=== PATIENT | male | born 1965 | race African-American/Black ===

== ENCOUNTER 2020-10-05 04:37 | Inpatient (IN) | payer OTHER ==
[~2020-10-05 04:37] MED LIST: LEVAQUIN500 MG PO
[2020-10-05 05:30] LABS: BASOPHIL 0.2 % (0-2); EOSINOPHIL 0.1 % (0-5); HCT 36.9 % (42.0-52.0); LYMPHOCYTE 5.1 % (15-48); MCH 29.3 pg (25.0-31.0); MCHC 29.8 g/dL (32.0-36.0); MCV 98.4 fL (78.0-100.0); MONOCYTE 4.4 % (0-12); MPV 9.9 fL (6.0-9.5); NEUTROPHIL 89.1 % (41-80); NRBC 0; PLT 268 K/uL (150-400); RBC 3.75 M/uL (4.70-6.00); RDW 15.7 % (11.5-14.0)
[2020-10-05 06:20] LABS: BILIRUBIN NEGATIVE (NEGATIVE); BLOOD NEGATIVE Ery/uL (NEGATIVE); CLARITY CLEAR (CLEAR); COLOR YELLOW (YELLOW); GLUCOSE (U) NORMAL (NORMAL); LEUKOCYTES NEGATIVE Leu/uL (NEGATIVE); NITRITE NEGATIVE (NEGATIVE); PROTEIN TRACE (LOW) mg/dL (NEGATIVE); SPECIFIC GRAVITY >=1.030 (1.001-1.030); UROBILINOGEN 0.2 mg/dL (0.2-1.0); pH 5.5 (5.0-9.0)
[2020-10-05 06:28] LABS: ALBUMIN 2.9 g/dL (3.4-5.0); BILIRUBIN - TOTAL 0.3 mg/dL (0.2-1.0); BUN/CREAT RATIO (CALC) 16.2 RATIO; CREATININE 1.17 mg/dL (0.67-1.17); POTASSIUM 4.5 mmol/L (3.5-5.1); TOTAL PROTEIN 7.9 g/dL (6.4-8.2)
[2020-10-05 06:31] LABS: FLU B NEGATIVE B (NEGATIVE B)
[2020-10-05 06:34] LABS: URINARY RBC RARE
[2020-10-05 06:35] LABS: ECSTASY (MDMA) NEGATIVE (NEGATIVE); MARIJUANA (THC) NEGATIVE (NEGATIVE); METHADONE NEGATIVE (NEGATIVE); OPIATES NEGATIVE (NEGATIVE)
[2020-10-05 06:36] LABS: AMPHETAMINES POSITIVE (NEGATIVE); BARBITURATES NEGATIVE (NEGATIVE); OXYCODONE NEGATIVE (NEGATIVE)
[2020-10-05] MEDS ORDERED: PROAIR DIGIHAL90 MCG INH (12:46)
[2020-10-05] MEDS ORDERED: LOVENOX80 MG/0.8 SC (12:47)
[2020-10-05] MEDS ORDERED: NORVASC 5MG TABL5 MG PO (12:49)
[2020-10-05] MEDS ORDERED: SINGULAIR10 MG PO (12:49)
[2020-10-05] MEDS ORDERED: FOLIC ACID1 MG PO (12:49)
[2020-10-05] MEDS ORDERED: ZITHROMAX500 MG PO (12:50)
[2020-10-05] MEDS ORDERED: MAG-OXIDE 400M400 MG PO (12:50)
[2020-10-05] MEDS ORDERED: VENTOLIN (2.5 MG/3 M INH (12:54)
[2020-10-05] MEDS ORDERED: SPIRIVA 18MCG18 MCG INH (12:54)
[2020-10-06 05:40] LABS: BASOPHIL 0 % (0-2); EOSINOPHIL 0 % (0-5); HCT 28.9 % (42.0-52.0); LYMPHOCYTE 2.5 % (15-48); MCH 29.5 pg (25.0-31.0); MCHC 30.4 g/dL (32.0-36.0); MONOCYTE 2.4 % (0-12); MPV 10.1 fL (6.0-9.5); NEUTROPHIL 94.7 % (41-80); NRBC 0; PLT 195 K/uL (150-400); RBC 2.98 M/uL (4.70-6.00); RDW 15.5 % (11.5-14.0); WBC 6.7 K/uL (4.0-10.5)
[2020-10-06 05:47] LABS: HGB 8.8 g/dl (13.2-18.0)
[2020-10-06 06:05] LABS: BILIRUBIN - TOTAL 0.2 mg/dL (0.2-1.0); BUN/CREAT RATIO (CALC) 25.9 RATIO; CREATININE 1.12 mg/dL (0.67-1.17); GLOBULIN (CALCULATION) 3.9 g/dL; MAGNESIUM 1.7 mg/dL (1.8-2.4); POTASSIUM 4.9 mmol/L (3.5-5.1); TOTAL PROTEIN 5.9 g/dL (6.4-8.2)
--- NOTE | 2020-10-06 16:54 | NUR ---
PT LIVES WITH PARENT; PLEASE ADVISE OF DISCHARGE NEEDS
[2020-10-07 04:58] LABS: BASOPHIL 0.1 % (0-2); EOSINOPHIL 0 % (0-5); HCT 28.5 % (42.0-52.0); HGB 8.7 g/dl (13.2-18.0); LYMPHOCYTE 1.2 % (15-48); MCH 29.8 pg (25.0-31.0); MCHC 30.5 g/dL (32.0-36.0); MCV 97.6 fL (78.0-100.0); MONOCYTE 2.1 % (0-12); NRBC 0; PLT 176 K/uL (150-400); RBC 2.92 M/uL (4.70-6.00); RETICULOCYTE COUNT 1.3 % (1.0-2.0)
[2020-10-07 05:21] LABS: WBC 7.3 K/uL (4.0-10.5)
[2020-10-07 05:54] LABS: ALBUMIN 2.1 g/dL (3.4-5.0); BILIRUBIN - TOTAL 0.2 mg/dL (0.2-1.0); BUN/CREAT RATIO (CALC) 33.3 RATIO; CREATININE 0.93 mg/dL (0.67-1.17); GLOBULIN (CALCULATION) 3.8 g/dL; MAGNESIUM 2.4 mg/dL (1.8-2.4); POTASSIUM 4.4 mmol/L (3.5-5.1); TOTAL PROTEIN 5.9 g/dL (6.4-8.2)
[2020-10-07 06:12] LABS: IRON % SATURATION 34.2 %SAT (20-50)
--- NOTE | 2020-10-07 08:00 | NUR ---
OKAY TO USE LEFT CHEST PORT PER
[2020-10-08 03:13] LABS: BASOPHIL 0 % (0-2); EOSINOPHIL 0 % (0-5); HCT 27.4 % (42.0-52.0); HGB 8.1 g/dl (13.2-18.0); LYMPHOCYTE 1.1 % (15-48); MCHC 29.6 g/dL (32.0-36.0); MCV 101.5 fL (78.0-100.0); MONOCYTE 2.9 % (0-12); MPV 10.2 fL (6.0-9.5); NRBC 0; PLT 174 K/uL (150-400); RDW 16.3 % (11.5-14.0)
[2020-10-08 03:30] LABS: ALBUMIN 1.9 g/dL (3.4-5.0); ALKALINE PHOSHATASE 44 U/L (46-116); ALT 16 U/L (16-63); AST <5 U/L (15-37); BILIRUBIN - TOTAL 0.2 mg/dL (0.2-1.0); BUN 30 mg/dL (7-18); BUN/CREAT RATIO (CALC) 36.1 RATIO; CHLORIDE 110 mmol/L (98-107); CO2 (BICARBONATE) 26 mmol/L (21-32); CREATININE 0.83 mg/dL (0.67-1.17); GLOBULIN (CALCULATION) 3.7 g/dL; GLUCOSE 166 mg/dL (74-106); MAGNESIUM 2.1 mg/dL (1.8-2.4); PHOSPHORUS 2.2 mg/dL (2.6-4.7); POTASSIUM 4.5 mmol/L (3.5-5.1); TOTAL PROTEIN 5.6 g/dL (6.4-8.2)
[2020-10-09 05:08] LABS: BASOPHIL 0.1 % (0-2); EOSINOPHIL 0 % (0-5); HCT 29.4 % (42.0-52.0); HGB 8.6 g/dl (13.2-18.0); LYMPHOCYTE 1.2 % (15-48); MCH 29.8 pg (25.0-31.0); MCHC 29.3 g/dL (32.0-36.0); MCV 101.7 fL (78.0-100.0); MONOCYTE 3.1 % (0-12); MPV 10.5 fL (6.0-9.5); NRBC 0; PLT 186 K/uL (150-400); RBC 2.89 M/uL (4.70-6.00); RDW 16.3 % (11.5-14.0); WBC 8.2 K/uL (4.0-10.5)
[2020-10-09 05:59] LABS: NEUTROPHIL 94.7 % (41-80)
[2020-10-09 06:34] LABS: BILIRUBIN - TOTAL 0.1 mg/dL (0.2-1.0); BUN/CREAT RATIO (CALC) 38.8 RATIO; CREATININE 0.8 mg/dL (0.67-1.17); GLOBULIN (CALCULATION) 3.7 g/dL; MAGNESIUM 1.7 mg/dL (1.8-2.4); PHOSPHORUS 2.9 mg/dL (2.6-4.7); POTASSIUM 4.7 mmol/L (3.5-5.1); TOTAL PROTEIN 5.7 g/dL (6.4-8.2)
--- NOTE | 2020-10-09 19:33 | NUR ---
CPAP TRIAL ATTEMPTED THIS MORNING. DRIPS TITRATED TO fENTANYL TO 150 MCGS, VERSED OFF AND PROPOFOL TO 25 MCGS. ALL DRIP RETURNED TO FORMER RATES AFTER TRIAL
[2020-10-10 04:46] LABS: BASOPHIL 0 % (0-2); EOSINOPHIL 0 % (0-5); HCT 29.2 % (42.0-52.0); HGB 8.9 g/dl (13.2-18.0); LYMPHOCYTE 1.4 % (15-48); MCH 30.4 pg (25.0-31.0); MCHC 30.5 g/dL (32.0-36.0); MCV 99.7 fL (78.0-100.0); MONOCYTE 2.9 % (0-12); MPV 10.4 fL (6.0-9.5); NEUTROPHIL 94.9 % (41-80); NRBC 0; PLT 195 K/uL (150-400); RBC 2.93 M/uL (4.70-6.00); RDW 16.5 % (11.5-14.0)
[2020-10-10 06:18] LABS: BILIRUBIN - TOTAL 0.2 mg/dL (0.2-1.0); BUN/CREAT RATIO (CALC) 38.1 RATIO; CREATININE 0.84 mg/dL (0.67-1.17); GLOBULIN (CALCULATION) 3.3 g/dL; PHOSPHORUS 3.6 mg/dL (2.6-4.7); POTASSIUM 4.4 mmol/L (3.5-5.1); TOTAL PROTEIN 5.3 g/dL (6.4-8.2)
[2020-10-11 04:17] LABS: BASOPHIL 0.1 % (0-2); EOSINOPHIL 0 % (0-5); HCT 29.1 % (42.0-52.0); HGB 8.6 g/dl (13.2-18.0); MCH 29.8 pg (25.0-31.0); MCHC 29.6 g/dL (32.0-36.0); MCV 100.7 fL (78.0-100.0); MONOCYTE 2.3 % (0-12); MPV 10.6 fL (6.0-9.5); NRBC 0; PLT 197 K/uL (150-400); RBC 2.89 M/uL (4.70-6.00); RDW 16.6 % (11.5-14.0); WBC 8.6 K/uL (4.0-10.5)
[2020-10-11 04:32] LABS: BUN/CREAT RATIO (CALC) 46.2 RATIO; CREATININE 0.78 mg/dL (0.67-1.17); POTASSIUM 4.7 mmol/L (3.5-5.1)
--- NOTE | 2020-10-11 09:15 | NUR ---
0830 RESP AT BEDSIDE FOR CPAP TRIAL 0835- O2 SAT DOWN TO 82% WHILE ON CPAP SETTINGS, MD NOTIFIED, SETTING CHANGED BACK TO PREVIOUS VENT SETTINGS, O2 IMPROVING, WILL CONTINUE TO DECREASE SEDATION AND TRY CPAP TRIAL AGAIN LATER
--- NOTE | 2020-10-11 13:03 | NUR ---
1025-RESTARTED CPAP TRIAL, PT ABLE TO FOLLOW SIMPLE COMMANDS 1230- PT HAS BEEN TOLERATING CPAP TRIAL WELL, MD DID TURN UP FIO2 TO 65 FOR SLIGHT DROP IN O2 LEVEL, O2 QUICKLY IMPROVED, WILL CONTINUE TO MONITOR
--- NOTE | 2020-10-11 21:07 | NUR ---
PATIENT IS AWAKE AND RESTLESS ON VENT. SETTING CHANGES MADE FOR BETTER PATIENT COMFORT WITH VENTILATOR PS DECREASED TO 8 AND FLOW DECREASED TO 60, BETTER SYNCHRONY WITH VENT SAT 100%, FIO2 DECREASED 30%
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
--- NOTE | 2020-10-12 02:08 | NUR ---
PATIENT CONTINUES TO REST COMFORTABLY ON CPAP PIP 17, SPON EXVT 706, RR 10-12 ON 30% +5 SAT 99% PATIENT HAS NOT ALARMED SINCE SWITCHED TO CPAP
[2020-10-12 03:45] LABS: BASOPHIL 0.1 % (0-2); EOSINOPHIL 0 % (0-5); HCT 35.8 % (42.0-52.0); HGB 10.8 g/dl (13.2-18.0); LYMPHOCYTE 1.2 % (15-48); MCH 30.1 pg (25.0-31.0); MCHC 30.2 g/dL (32.0-36.0); MCV 99.7 fL (78.0-100.0); MONOCYTE 3.6 % (0-12); MPV 9.8 fL (6.0-9.5); NRBC 0; PLT 231 K/uL (150-400); RBC 3.59 M/uL (4.70-6.00); RDW 16.3 % (11.5-14.0); WBC 12.6 K/uL (4.0-10.5)
[2020-10-12 04:05] LABS: ALBUMIN 2.3 g/dL (3.4-5.0); BILIRUBIN - TOTAL 0.2 mg/dL (0.2-1.0); CREATININE 0.76 mg/dL (0.67-1.17); GLOBULIN (CALCULATION) 3.9 g/dL; MAGNESIUM 1.9 mg/dL (1.8-2.4); PHOSPHORUS 4.4 mg/dL (2.6-4.7); POTASSIUM 5.4 mmol/L (3.5-5.1); TOTAL PROTEIN 6.2 g/dL (6.4-8.2)
--- NOTE | 2020-10-12 05:09 | NUR ---
PATIENT HAD APNEIC EPISODE THIS AM, PATIENT NOT ALERT PREVIOSULY THROUGH THE NIGHT. AM ABG DOCUMENTED ON PS10 COMPENSATED RESP FAILURE. PATIENT NOW BACK ON SIMV 550, RR 20, PS 8, +5, 30%. PATIENT HAD INCREASED PIP PRESSURES TO 65, NOW AFTER BEING ON SETTINGS ABOUT 5 MINUTES PIP AROUND 48-50. PATIENT SUCTIONED, PATIENT HAD COUGHED UP THIN SLIGHT PINKISH TINT SECRETIONS. PATIENT SUCTIONED THROUGH ET AGAIN WITH THIN GRAVES/PINK SECRETIONS. PATIENT NOT RESTLESS HE WAS PRIOR THIS EVENING. RN TO START WEANING SEDATION AROUND 0530. RT TO CONTINUE TO MONITOR PATIENT
--- NOTE | 2020-10-12 10:20 | NUR ---
EXTUBATION NOTE: WEANED OFF OF DIPRIVAN THIS AM, PT ALERT, CALM, FOLLOWING COMMANDS, NODS HEAD YES/NO, DOING WELL ON CPAP TRIAL, PLAN TO EXTUBATE. RESP THERAPIST YANG AT BEDSIDE, DR. TORO AT DOOR, THIS RN AT BEDSIDE. FENTANYL ALSO WEANED DOWN/TURNED OFF. EXTUBATED & NGT REMOVED AT 1020 PER MD ORDER. RESTRAINTS REMOVED. VSS, PT TOLERATING 5 L/MIN NC WELL, T/C/DB WELL. TUBE FEEDS TURNED OFF AT 0800 THIS AM FOR EXTUBATION. PT TAKING FEW ICE CHIPS, CLEANING FACE, COOPERATIVE/CALM. CALL LIGHT IN REACH. VSS, O2 SATS 89-91%, NEB ORDERED/GIVEN FOR WHEEZING/RONCHI. WILL CONTINUE TO MONITOR CLOSELY.
[2020-10-13 06:42] LABS: BASOPHIL 0 % (0-2); EOSINOPHIL 0 % (0-5); HCT 32.8 % (42.0-52.0); HGB 10.1 g/dl (13.2-18.0); LYMPHOCYTE 0.9 % (15-48); MCH 29.6 pg (25.0-31.0); MCHC 30.8 g/dL (32.0-36.0); MCV 96.2 fL (78.0-100.0); MONOCYTE 2.8 % (0-12); MPV 10.6 fL (6.0-9.5); NEUTROPHIL 95.4 % (41-80); NRBC 0; PLT 226 K/uL (150-400); RBC 3.41 M/uL (4.70-6.00); WBC 8.1 K/uL (4.0-10.5)
[2020-10-13 06:45] LABS: BILIRUBIN - TOTAL 0.3 mg/dL (0.2-1.0); BUN/CREAT RATIO (CALC) 43.2 RATIO; CREATININE 0.74 mg/dL (0.67-1.17); GLOBULIN (CALCULATION) 3.7 g/dL; PHOSPHORUS 3.8 mg/dL (2.6-4.7); POTASSIUM 4.2 mmol/L (3.5-5.1); TOTAL PROTEIN 5.7 g/dL (6.4-8.2)
[2020-10-13 06:50] LABS: MAGNESIUM 1.5 mg/dL (1.8-2.4)
[2020-10-16] MEDS ORDERED: PREDNISONE 20MG20 MG PO (10:59)
--- NOTE | 2020-10-16 13:13 | NUR ---
PT FALL @ 1210 NO INJURIES; NO PAIN FULL PHYSICAL/MENTAL ASSESSMENT COMPLETED DR. MARLEY NOTIFIED - MD ASSESSED PATIENT. FOUND HIM TO STILL BE OKAY TO BE DC'd HOME TODAY. BP NOTED TO BE ELEVATED (CHRONIC) - EXTRA 1X DOSE OF CATAPRESS 0.1MG PO GIVEN. MOTHER CALLED & TALKED TO PATIENT STATED HE "GOT TRIPPED UP BY HIS O2 TUBING & FELL ON HIS RIGHT SIDE" PATIENT HELPED UP INTO BED BED ALARM ON NEED TO CALL NURSE FOR ASSISTANCE STRESSED AGAIN - PT VOICED UNDERSTANDING
--- NOTE | 2020-10-16 14:57 | NUR ---
PT DC'd - taken to exit via wheelchair on O2 - picked up by Mother
== END 2020-10-16 15:00 | disposition home or self-care (01) | DRG 870 ==
LOC: FER 04:37 → FICU 07:07
PROVIDERS: Emergency Medicine; Internal Medicine; ADMIT Internal Medicine
PROC: 0BH17EZ Insertion of Endotracheal Airway into Trachea, Via Natural or Artificial Opening (ICD-10-PCS; principal; 2020-10-05)
PROC: 5A1955Z Respiratory Ventilation, Greater than 96 Consecutive Hours (ICD-10-PCS; 2020-10-05)
DX: A41.9 Sepsis, unspecified organism (principal); J18.9 Pneumonia, unspecified organism; J96.01 Acute respiratory failure with hypoxia; J96.02 Acute respiratory failure with hypercapnia; E87.2 Acidosis; J44.1 Chronic obstructive pulmonary disease with (acute) exacerbation; J44.0 Chronic obstructive pulmonary disease with (acute) lower respiratory infection; C34.90 Malignant neoplasm of unspecified part of unspecified bronchus or lung; R65.20 Severe sepsis without septic shock; L89.152 Pressure ulcer of sacral region, stage 2; Z20.828 Contact with and (suspected) exposure to other viral communicable diseases; F15.90 Other stimulant use, unspecified, uncomplicated; Z86.711 Personal history of pulmonary embolism; Z79.01 Long term (current) use of anticoagulants; Z79.899 Other long term (current) drug therapy
CPT/HCPCS: 31500; 36415; 36600; 70360; 71045; 71275; 74018; 80048; 80053; 80202; 80305; 81001; 82607; 82746; 82803; 83540; 83550; 83605; 83735; 83880; 84100; 84145; 84484; 85025; 87040; 87070; 87205; 87804; 87899; 93005; 94002; 94640; 94760; 94770; 96365; 96367; 96375; 97110; 97162; 97166; 97530-GP; 97535; C9113; J0456; J0692; J0696; J0743; J1650; J1956; J2250; J2543; J2704; J2920; J2930; J3010; J3370; J3475; J7030; J7040; J7050; J7060; J7512; Q9967; U0002

== ENCOUNTER 2020-10-17 17:22 | Inpatient (IN) | payer OTHER ==
[~2020-10-17 17:22] MED LIST changes: +FOLIC ACID1 MG PO; +LOVENOX80 MG/0.8 SC; +MAG-OXIDE 400M400 MG PO; +NORVASC 5MG TABL5 MG PO; +PREDNISONE 20MG20 MG PO; +PROAIR DIGIHAL90 MCG INH; +SINGULAIR10 MG PO; +SPIRIVA 18MCG18 MCG INH; +VENTOLIN (2.5 MG/3 M INH; +ZITHROMAX500 MG PO
[2020-10-17 17:59] LABS: BASOPHIL 0.1 % (0-2); EOSINOPHIL 0 % (0-5); HCT 38.4 % (42.0-52.0); HGB 11.5 g/dl (13.2-18.0); LYMPHOCYTE 2.3 % (15-48); MCH 29.6 pg (25.0-31.0); MCHC 29.9 g/dL (32.0-36.0); MONOCYTE 3.9 % (0-12); MPV 10.4 fL (6.0-9.5); NEUTROPHIL 93.5 % (41-80); NRBC 0; PLT 248 K/uL (150-400); RBC 3.88 M/uL (4.70-6.00); RDW 15.2 % (11.5-14.0)
[2020-10-17 18:02] LABS: WBC 10.1 K/uL (4.0-10.5)
[2020-10-17 18:04] LABS: INR 1.06 (0.9-1.2); PROTHROMBIN TIME 13.1 SECONDS (11.4-13.6)
[2020-10-17 18:06] LABS: D-DIMER 0.64 ug/mLFEU (0.00-0.41)
[2020-10-17 18:23] LABS: ALBUMIN 2.7 g/dL (3.4-5.0); BILIRUBIN - TOTAL 0.3 mg/dL (0.2-1.0); BUN/CREAT RATIO (CALC) 19.3 RATIO; C-REACTIVE PROTEIN 1.4 mg/dL (<=0.90); CREATININE 0.83 mg/dL (0.67-1.17); GLOBULIN (CALCULATION) 4.1 g/dL; MAGNESIUM 1.3 mg/dL (1.8-2.4); POTASSIUM 3.8 mmol/L (3.5-5.1); TOTAL PROTEIN 6.8 g/dL (6.4-8.2)
[2020-10-17 18:34] LABS: LACTIC ACID 1.5 mmol/L (0.4-1.9)
[2020-10-18 05:00] LABS: BASOPHIL 0 % (0-2); EOSINOPHIL 0 % (0-5); HCT 38.6 % (42.0-52.0); HGB 11.5 g/dl (13.2-18.0); LYMPHOCYTE 1.3 % (15-48); MCH 29.6 pg (25.0-31.0); MCHC 29.8 g/dL (32.0-36.0); MCV 99.5 fL (78.0-100.0); MONOCYTE 0.9 % (0-12); MPV 9.9 fL (6.0-9.5); NEUTROPHIL 97.3 % (41-80); NRBC 0; PLT 223 K/uL (150-400); RBC 3.88 M/uL (4.70-6.00); RDW 15.5 % (11.5-14.0)
[2020-10-18 05:01] LABS: WBC 7.8 K/uL (4.0-10.5)
[2020-10-18 05:18] LABS: CREATININE 0.87 mg/dL (0.67-1.17); POTASSIUM 4.2 mmol/L (3.5-5.1)
[2020-10-18 07:05] LABS: BILIRUBIN NEGATIVE (NEGATIVE); BLOOD NEGATIVE Ery/uL (NEGATIVE); CLARITY CLEAR (CLEAR); COLOR YELLOW (YELLOW); GLUCOSE (U) TRACE mg/dL (NORMAL); LEUKOCYTES NEGATIVE Leu/uL (NEGATIVE); NITRITE NEGATIVE (NEGATIVE); PROTEIN NEGATIVE (NEGATIVE); UROBILINOGEN 0.2 mg/dL (0.2-1.0)
[2020-10-18 07:11] LABS: BACTERIA TRACE; MUCOUS TRACE; SQUAMOUS EPITHELIAL CELLS RARE; URINARY WBC RARE
--- NOTE | 2020-10-18 10:59 | NUR ---
PT LIVES WITH MOM AND IS ASSIST WITH CARE HE REPORTS; HE HAD A RECENT STAY HERE WAS D/C HOME AND DECLINED HOME HEALTH AT DISCHARGE. PLEASE ADVISE OF ANY D/C NEEDS. NOT SURE IF PT HAS HOME O2
[2020-10-19 04:11] LABS: BASOPHIL 0.1 % (0-2); EOSINOPHIL 0 % (0-5); HCT 34.6 % (42.0-52.0); HGB 10.4 g/dl (13.2-18.0); MCH 29.9 pg (25.0-31.0); MCHC 30.1 g/dL (32.0-36.0); MCV 99.4 fL (78.0-100.0); MPV 9.6 fL (6.0-9.5); NRBC 0; PLT 209 K/uL (150-400); RBC 3.48 M/uL (4.70-6.00); RDW 15.5 % (11.5-14.0); WBC 9.5 K/uL (4.0-10.5)
[2020-10-19 04:15] LABS: NEUTROPHIL 93.3 % (41-80)
[2020-10-19 04:30] LABS: BUN/CREAT RATIO (CALC) 22.4 RATIO; CREATININE 0.85 mg/dL (0.67-1.17); POTASSIUM 3.3 mmol/L (3.5-5.1)
[2020-10-20 06:23] LABS: BASOPHIL 0 % (0-2); EOSINOPHIL 0 % (0-5); HCT 28.5 % (42.0-52.0); LYMPHOCYTE 10.1 % (15-48); MCH 29.5 pg (25.0-31.0); MCHC 28.1 g/dL (32.0-36.0); MCV 105.2 fL (78.0-100.0); MONOCYTE 4.3 % (0-12); MPV 10.2 fL (6.0-9.5); NEUTROPHIL 84.9 % (41-80); NRBC 0.2; PLT 223 K/uL (150-400); RBC 2.71 M/uL (4.70-6.00); RDW 15.1 % (11.5-14.0); WBC 8.7 K/uL (4.0-10.5)
[2020-10-20 06:27] LABS: BUN/CREAT RATIO (CALC) 17.7 RATIO; CREATININE 1.41 mg/dL (0.67-1.17); POTASSIUM 4.2 mmol/L (3.5-5.1)
[2020-10-20 06:29] LABS: MAGNESIUM 1.8 mg/dL (1.8-2.4)
--- NOTE | 2020-10-20 06:38 | NUR ---
AT 0537 NOTED PATIENT WITH BRADYCARDIA CALLED [facility] FOR EKG, PATIENT CAME BACK UP TO 78 THEN BACK DOWN TO 54. CALLED PATIENT NAME AND HE LOOKED UP BLINKED THEN EYES ROLLED, [facility] IN ROOM AND MADHAVI RAMIREZ CALLED, CPR BEGAN. DR FINK ARRIVES AND EPI GIVEN AT 0539, TORSADES AT 0541, SHOCK GIVEN AT 0542. INTUBATED 10/11 AT THE LIP. EPI AT 0543, PEA NOTED AT 0543, EPI GIVEN AT 0546, PEA AT 0547 EPI GIVEN AGAIN AT 0550, PEA AT 0549 WITH BICARB AT 0551 AND CALCIUM AT 0552. PULSE OBTAINED WITH GOOD RHYTHM AT 0553, EPI GIVEN AT 0602 81/49 AMD HR BOUNCING FROM 80-130'S CXR DONE AT 0602. HEARTBEAT LOST AT 0603 CPR BEGAN AGAIN. 0605 ASYSTOLE EPI DRIP AT 0606 CALCIUM AND BICARB AT 0608 EPI AT 0609 STILL ASYSTOLE AT 0610. PEA AT 0612, NEEDLE DECOMPRESSION AT 0613 WITH AIR RELEASED. ASYSTOLE AT 0615 PEA AT 0617 EPI GIVAN AT 0621 WEAK PULSE PALPATED AT 0621. INCREASED EPI DRIP FROM 2MCG TO 10 MCG ATROPINE GIVEN AT 0623. MD AND PRACTITIONER HAVE BEEN TALKING WITH MOTHER WITH DECISION MADE IF PULSE LOST AGAIN TO JUST LET HIM GO. SEE NOTE PER PROVIDER ALSO. PATIENT BEGAN TO LOSE PULSE AGAIN EPI DECREASE TO 5MCG AT 0630 AND AGAIN AT 0632 TO 2MCG THEN TURNED OFF AT 0635. CODE CALLED AT 0638 WITH NO PULSE NO VITAL SIGNS. MOTHER HAD BEEN CALLED AT 0541 AND WHEN SHE ARRIVED PROVIDERS KEPT HER INFORMED OF STATUS.
--- NOTE | 2020-10-20 08:20 | NUR ---
HOME PICKED UP BODY
== END 2020-10-20 08:20 | disposition expired | DRG 166 ==
LOC: FER 17:22 → FTCU 21:22
PROVIDERS: Emergency Medicine; Nurse Practitioner; ADMIT Internal Medicine
PROC: 0B9K3ZZ Drainage of Right Lung, Percutaneous Approach (ICD-10-PCS; 2020-10-17)
PROC: 0BH17EZ Insertion of Endotracheal Airway into Trachea, Via Natural or Artificial Opening (ICD-10-PCS; 2020-10-17)
PROC: 5A09357 Assistance with Respiratory Ventilation, Less than 24 Consecutive Hours, Continuous Positive Airway Pressure (ICD-10-PCS; 2020-10-17)
PROC: 5A12012 Performance of Cardiac Output, Single, Manual (ICD-10-PCS; principal; 2020-10-20)
DX: C34.90 Malignant neoplasm of unspecified part of unspecified bronchus or lung (principal); J96.21 Acute and chronic respiratory failure with hypoxia; S22.39XA Fracture of one rib, unspecified side, initial encounter for closed fracture; J18.8 Other pneumonia, unspecified organism; J44.1 Chronic obstructive pulmonary disease with (acute) exacerbation; R65.10 Systemic inflammatory response syndrome (SIRS) of non-infectious origin without acute organ dysfunction; S27.0XXA Traumatic pneumothorax, initial encounter; J44.0 Chronic obstructive pulmonary disease with (acute) lower respiratory infection; Z66 Do not resuscitate; F41.9 Anxiety disorder, unspecified; I11.0 Hypertensive heart disease with heart failure; X58.XXXA Exposure to other specified factors, initial encounter; I50.810 Right heart failure, unspecified; F17.200 Nicotine dependence, unspecified, uncomplicated; Z20.822 Contact with and (suspected) exposure to COVID-19; Z86.711 Personal history of pulmonary embolism; Z98.890 Other specified postprocedural states; Z79.899 Other long term (current) drug therapy
CPT/HCPCS: 31500; 36415; 36600; 71045; 80048; 80053; 81001; 82728; 82803; 83605; 83735; 83880; 84145; 84484; 85025; 85379; 85610; 85730; 86140; 87040; 92950; 93005; 94010; 94640; 94660; 94664; 94668; J0153; J0171; J0461; J0610; J1650; J1940; J2270; J2543; J2920; J2930; J3475; U0002